=== PATIENT | male | born 1985 | race Caucasian/White ===

== ENCOUNTER 2018-02-12 07:49 | Emergency (ER) | payer OTHER ==
[~2018-02-12] VITALS: Ht 167.6 cm; Wt 68.1 kg
[~2018-02-12 07:49] MED LIST: ACETAMINOPHEN-1 EAC1 PO; BACTRIM DS TAB1 EACH PO; CLONAZEPAM 1 MG1 M1 PO; IBUPROFEN 800800 M1 PO; KEFLEX500 MG PO; NORCO 5-325 TA1 EACH PO; RITALIN LA40 MG PO; ULTRAM 50MG TAB50 MG PO; XANAX1 MG PO; ZOLOFT 50 MG TA50 M1 PO
[2018-02-12 08:16] LABS: URINE BILIRUBIN NEGATIVE (Negative); URINE BLOOD NEGATIVE (Negative); URINE CLARITY CLEAR; URINE COLOR YELLOW; URINE GLUCOSE-RANDOM NEGATIVE (Negative); URINE KETONES NEGATIVE (Negative); URINE LEUKOCYTES NEGATIVE (Negative); URINE NITRITE NEGATIVE (Negative); URINE PROTEIN NEGATIVE (Negative); URINE UROBILINOGEN 0.2 E.U./dl (0.2-1.0)
[2018-02-12 08:19] LABS: HEMATOCRIT 42.1 % (42.0-52.0); HEMOGLOBIN 14.6 gm/dL (14.0-18.0); MCH 29.9 pg (26.0-34.0); MCHC 34.6 g/dL (28.0-37.0); MCV 86.6 fL (80.0-100.0); MPV 7.9 fl. (7.2-11.1); RBC 4.87 mil/uL (4.50-6.00); RDW-CV 12.6 % (10.5-14.5); WBC 11.5 thou/uL (4.0-11.0)
[2018-02-12 08:22] LABS: AMP/METHAMP Negative (Negative); BARBITURATES Negative (Negative); BENZODIAZEPINES Negative (Negative); COCAINE Negative (Negative); METHADONE Negative (Negative); OPIATES Negative (Negative); PCP Negative (Negative); THC Negative (Negative)
[2018-02-12 08:37] LABS: CALCIUM 8.9 mg/dL (8.5-10.1); CREATININE 0.9 mg/dL (0.6-1.3); POTASSIUM 3.5 mmol/L (3.5-5.1)
[2018-02-12 08:47] LABS: TOTAL BILIRUBIN 0.3 mg/dL (<0.1-1.0); TOTAL PROTEIN 7.6 g/dL (6.4-8.2)
[2018-02-12 08:50] LABS: ALCOHOL < 10 mg/dL (<10); SALICYLATE 4.9 mg/dL (2.8-20.0)
[2018-02-12 08:52] LABS: ACETAMINOPHEN < 2 ug/mL (10-30)
[2018-02-12 10:20] VITALS: BP 126/89
== END 2018-02-12 10:22 | disposition left against medical advice (07) ==
LOC: M.ERS 07:49
PROVIDERS: Personal Emergency Response Attendant
DX: F23 Brief psychotic disorder (principal); F17.200 Nicotine dependence, unspecified, uncomplicated; F41.9 Anxiety disorder, unspecified; F32.9 Major depressive disorder, single episode, unspecified; F98.8 Other specified behavioral and emotional disorders with onset usually occurring in childhood and adolescence; Z88.0 Allergy status to penicillin

== ENCOUNTER 2018-03-12 09:43 | Emergency (ER) | payer OTHER ==
[~2018-03-12] VITALS: Ht 167.6 cm; Wt 74.8 kg
[2018-03-12 10:20] LABS: HEMATOCRIT 55.8 % (42.0-52.0); MCH 29.3 pg (26.0-34.0); MCHC 32.2 g/dL (28.0-37.0); MPV 9.1 fl. (7.2-11.1); NUCLEATED RBCS 0 /100WBC; PLATELET COUNT* 465 thou/uL (150-400); RBC 6.13 mil/uL (4.50-6.00); RDW-CV 13.9 % (10.5-14.5); WBC 38.3 thou/uL (4.0-11.0)
[2018-03-12 10:30] LABS: ANION GAP 31 mmol/L (7-16); APTT 39.1 Seconds (25.0-31.3); BUN 39 mg/dL (7-18); CHLORIDE 86 mmol/L (98-107); CO2 17 mmol/L (21-32); CREATININE 6.3 mg/dL (0.6-1.3); PROTIME 53.8 Seconds (9.20-11.50); SODIUM 134 mmol/L (136-145)
[2018-03-12 10:46] LABS: ALBUMIN 4.9 g/dL (3.4-5.0); ALKALINE PHOSPHATASE 362 U/L (46-116); CK-MB MASS 27.7 ng/mL (<0.5-3.6); NT-PRO BRAIN NAT PEPTIDE 1314 pg/mL (<300); TOTAL BILIRUBIN 8.6 mg/dL (<0.1-1.0); TOTAL PROTEIN 8.4 g/dL (6.4-8.2)
[2018-03-12 10:47] LABS: GLUCOSE 49 mg/dL (70-99); POTASSIUM 3.9 mmol/L (3.5-5.1)
[2018-03-12 10:49] LABS: INR 5.3; TROPONIN-I LEVEL 0.99 ng/mL (<0.06)
[2018-03-12 10:52] LABS: ABSOLUTE LYMPHOCYTES 2.7 thou/uL (0.8-5.3); ABSOLUTE NEUTROPHILS 35.6 thou/uL (1.6-8.1)
[2018-03-12 10:53] LABS: PLATELET ESTIMATE INCREASED
[2018-03-12 10:54] LABS: TOXIC GRANULATION 1+
[2018-03-12 10:59] LABS: URINE BILIRUBIN NEGATIVE (Negative); URINE BLOOD 3+ (Negative); URINE CLARITY CLEAR; URINE COLOR YELLOW; URINE GLUCOSE-RANDOM NEGATIVE (Negative); URINE KETONES NEGATIVE (Negative); URINE LEUKOCYTES-REFLEX NEGATIVE (Negative); URINE NITRITE-REFLEX NEGATIVE (Negative); URINE PROTEIN 2+ (Negative); URINE SPECIFIC GRAVITY >= 1.030 (1.005-1.030); URINE UROBILINOGEN 0.2 E.U./dl (0.2-1.0)
[2018-03-12 11:01] LABS: ALCOHOL < 10 mg/dL (<10); SGOT 17048 U/L (15-37); SGPT > 20000 U/L (30-65)
[2018-03-12 11:02] LABS: ACETAMINOPHEN 59 ug/mL (10-30); SALICYLATE < 2.8 mg/dL (2.8-20.0)
[2018-03-12 11:06] LABS: AMP/METHAMP Negative (Negative); BARBITURATES Negative (Negative); BENZODIAZEPINES Negative (Negative); COCAINE Negative (Negative); METHADONE Negative (Negative); OPIATES Negative (Negative); PCP Negative (Negative); THC Negative (Negative)
[2018-03-12 11:10] LABS: SQUAMOUS NONE SEEN /LPF (0-3)
[2018-03-12 11:11] LABS: HYALINE CASTS 0-3 Few /LPF (None Seen)
[2018-03-12 11:12] LABS: BACTERIA-REFLEX None Seen /HPF (None Seen); URINE RBC 3-10 Few /HPF (0-2)
[2018-03-12 11:13] LABS: AMORPHOUS URATES Moderate /LPF (None Seen); URINE WBC-REFLEX 0-5 Rare /HPF (0-5)
[2018-03-12 12:25] LABS: BE -17.9 mmol/L (-2 to +3); PCO2 28.3 mmHg (35.0-45.0)
[2018-03-12 12:28] LABS: PO2 189.7 mmHg (75.0-100.0); pH 7.148 (7.340-7.450)
[2018-03-12 14:07] VITALS: BP 103/44
--- NOTE | 2018-03-13 15:50 | EKG ---
[place] [address] ELECTROCARDIOGRAM REPORT Name: RITESH SIERRA Room: 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 : 1985 Requested By: Anthony Bird Order Number: [id number] MD: Florencio Singleton Measurements Intervals [place] Rate: 115 P: 65 GA: 120 QRS: 62 QRSD: 97 T: 48 QT: 362 QTc: 501 Interpretive Statements Sinus tachycardia ST elev, probable normal early repol pattern Prolonged QT interval No previous ECG available for comparison Electronically Signed On 03-13-2018 15:50:15 [employer] TENDER by Florencio Singleton [email or web address] <ELECTRONICALLY SIGNED> By: Florencio Singleton MD, [facility] 03/13/18 1550 [id number] [id number] Florencio Singleton MD, FACC /EPI
== END 2018-03-12 14:13 | disposition short-term general hospital (02) ==
LOC: M.ERS 09:43
PROVIDERS: Family Medicine
DX: T39.1X4A Poisoning by 4-Aminophenol derivatives, undetermined, initial encounter (principal); A41.9 Sepsis, unspecified organism; K72.90 Hepatic failure, unspecified without coma; R79.89 Other specified abnormal findings of blood chemistry; N17.9 Acute kidney failure, unspecified; Y92.89 Other specified places as the place of occurrence of the external cause; F32.9 Major depressive disorder, single episode, unspecified; F41.9 Anxiety disorder, unspecified; Z88.0 Allergy status to penicillin

== ENCOUNTER 2019-03-25 04:53 | Emergency (ER) | payer MEDICAID ==
[~2019-03-25] VITALS: Ht 167.6 cm; Wt 65.8 kg
[2019-03-25 05:15] VITALS: BP 144/107
== END 2019-03-25 05:30 ==
LOC: M.ERS 04:53
DX: I10 Essential (primary) hypertension (principal); F32.9 Major depressive disorder, single episode, unspecified; F41.9 Anxiety disorder, unspecified; Z88.0 Allergy status to penicillin

== ENCOUNTER 2019-09-28 19:10 | Emergency (ER) | payer MEDICAID ==
[~2019-09-28] VITALS: Ht 167.6 cm; Wt 59.0 kg
[2019-09-28 19:51] LABS: ABSOLUTE BASOPHILS 0.1 thou/uL (0.0-0.2); ABSOLUTE LYMPHOCYTES 2.8 thou/uL (0.8-5.3); ABSOLUTE MONOCYTES 0.9 thou/uL (0.0-1.2); ABSOLUTE NEUTROPHILS 9.1 thou/uL (1.6-8.1); BASOPHILS 0.4 %; EOSINOPHILS 0.3 %; HEMOGLOBIN 14.4 gm/dL (14.0-18.0); LYMPHOCYTES 21.6 %; MCH 29.1 pg (26.0-34.0); MCHC 33.3 g/dL (28.0-37.0); MCV 87.2 fL (80.0-100.0); MONOCYTES 7.1 %; MPV 7.7 fl. (7.2-11.1); NUCLEATED RBCS 0 /100WBC; PLATELET COUNT* 469 thou/uL (150-400); POLYS 70.6 %; RBC 4.94 mil/uL (4.50-6.00); RDW-CV 13.2 % (10.5-14.5); WBC 12.8 thou/uL (4.0-11.0)
[2019-09-28 19:55] LABS: CALCIUM 9.4 mg/dL (8.5-10.1); CREATININE 1.4 mg/dL (0.6-1.3)
[2019-09-28 20:00] LABS: ALBUMIN 4.5 g/dL (3.4-5.0); TOTAL BILIRUBIN 0.3 mg/dL (<0.1-1.0); TOTAL PROTEIN 8.5 g/dL (6.4-8.2)
[2019-09-28 20:06] LABS: ACETAMINOPHEN < 2 ug/mL (10-30); ALCOHOL < 10 mg/dL (<10); SALICYLATE 3.7 mg/dL (2.8-20.0)
[2019-09-28 20:14] LABS: URINE BILIRUBIN NEGATIVE (Negative); URINE BLOOD NEGATIVE (Negative); URINE CLARITY CLEAR; URINE COLOR YELLOW; URINE GLUCOSE-RANDOM NEGATIVE (Negative); URINE KETONES NEGATIVE (Negative); URINE LEUKOCYTES-REFLEX NEGATIVE (Negative); URINE NITRITE-REFLEX NEGATIVE (Negative); URINE PROTEIN 1+ (Negative); URINE SPECIFIC GRAVITY >= 1.030 (1.005-1.030); URINE UROBILINOGEN 0.2 E.U./dl (0.2-1.0)
[2019-09-28 20:21] LABS: AMP/METHAMP POSITIVE (Negative); BARBITURATES Negative (Negative); BENZODIAZEPINES Negative (Negative); COCAINE Negative (Negative); METHADONE Negative (Negative); OPIATES Negative (Negative); PCP Negative (Negative); THC Negative (Negative)
--- NOTE | 2019-09-29 16:05 | EKG ---
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: : 1985 Requested By: Socorro Schultz Order Number: [id number] Angelito MD: Piyush Petit Measurements Intervals [place] Rate: 79 P: 24 DE: 111 QRS: 19 QRSD: 86 T: 47 QT: 362 QTc: 416 Interpretive Statements Sinus rhythm Borderline short DE interval Inferior infarct, old Compared to ECG 03/12/2018 10:19:26 Sinus tachycardia no longer present Prolonged QT interval no longer present Electronically Signed On 09-29-2019 16:05:35 CDT by Piyush Petit [email or web address] <ELECTRONICALLY SIGNED> By: Piyush Petit MD, [facility] 09/29/19 1605 1427 1427 Piyush Petit MD, [facility] /EPI
[2019-09-29 21:01] VITALS: BP 127/86
== END 2019-09-29 21:02 | disposition still patient (30) ==
LOC: M.ERS 19:10
PROVIDERS: Emergency Medicine
DX: F23 Brief psychotic disorder (principal); Z20.828 Contact with and (suspected) exposure to other viral communicable diseases; F41.9 Anxiety disorder, unspecified; F32.9 Major depressive disorder, single episode, unspecified; Z88.0 Allergy status to penicillin

== ENCOUNTER 2020-02-27 17:16 | Emergency (ER) | payer MEDICAID ==
[~2020-02-27] VITALS: Ht 175.3 cm; Wt 81.7 kg
[2020-02-27 17:33] LABS: ABSOLUTE BASOPHILS 0.1 thou/uL (0.0-0.2); ABSOLUTE LYMPHOCYTES 2.4 thou/uL (0.8-5.3); ABSOLUTE MONOCYTES 0.9 thou/uL (0.0-1.2); ABSOLUTE NEUTROPHILS 15.9 thou/uL (1.6-8.1); BASOPHILS 0.4 %; EOSINOPHILS 0.1 %; HEMATOCRIT 46.8 % (42.0-52.0); HEMOGLOBIN 15.3 gm/dL (14.0-18.0); LYMPHOCYTES 12.2 %; MCH 28.8 pg (26.0-34.0); MCHC 32.6 g/dL (28.0-37.0); MCV 88.4 fL (80.0-100.0); MONOCYTES 4.9 %; MPV 8.2 fl. (7.2-11.1); NUCLEATED RBCS 0 /100WBC; PLATELET COUNT* 469 thou/uL (150-400); POLYS 82.4 %; RDW-CV 14.1 % (10.5-14.5); WBC 19.3 thou/uL (4.0-11.0)
[2020-02-27] MEDS ORDERED: SUBOXONE 8 MG-1 EAC3 SUBLING (17:41)
[2020-02-27 17:46] LABS: SALICYLATE 5.2 mg/dL (2.8-20.0)
[2020-02-27 17:47] LABS: ACETAMINOPHEN < 2 ug/mL (10-30)
[2020-02-27 17:48] LABS: ALCOHOL < 10 mg/dL (<10)
[2020-02-27 17:56] LABS: CREATININE 1.4 mg/dL (0.6-1.3); POTASSIUM 3.7 mmol/L (3.5-5.1)
[2020-02-27 18:01] LABS: ALBUMIN 4.9 g/dL (3.4-5.0); TOTAL BILIRUBIN 0.3 mg/dL (<0.1-1.0); TOTAL PROTEIN 8.9 g/dL (6.4-8.2)
[2020-02-27 18:02] LABS: URINE BILIRUBIN NEGATIVE (Negative); URINE BLOOD NEGATIVE (Negative); URINE CLARITY CLEAR; URINE COLOR YELLOW; URINE GLUCOSE-RANDOM NEGATIVE (Negative); URINE KETONES NEGATIVE (Negative); URINE LEUKOCYTES-REFLEX NEGATIVE (Negative); URINE NITRITE-REFLEX NEGATIVE (Negative); URINE PROTEIN NEGATIVE (Negative); URINE UROBILINOGEN 0.2 E.U./dl (0.2-1.0)
[2020-02-27 18:09] LABS: AMP/METHAMP POSITIVE (Negative); BARBITURATES Negative (Negative); BENZODIAZEPINES Negative (Negative); COCAINE Negative (Negative); METHADONE Negative (Negative); OPIATES Negative (Negative); PCP Negative (Negative); THC Negative (Negative)
[2020-02-28 03:56] VITALS: BP 110/72
== END 2020-02-28 03:57 | disposition home or self-care (01) ==
LOC: M.ERS 17:16
PROVIDERS: Family Medicine
DX: F23 Brief psychotic disorder (principal); F19.90 Other psychoactive substance use, unspecified, uncomplicated; Z79.899 Other long term (current) drug therapy; Z88.0 Allergy status to penicillin